=== PATIENT | female | born 1980 | race Caucasian/White ===

== ENCOUNTER → 2024-07-28 13:26 | Outpatient (REF) | payer OTHER, SELFPAY | LOC: WDC 13:26 | PROVIDERS: ATTENDING PHYSICIAN Student in an Organized Health Care Education/Training Program | DX: Z12.31 Encounter for screening mammogram for malignant neoplasm of breast (principal) | CPT/HCPCS: 77063; 77067 ==

== ENCOUNTER 2025-04-09 11:54 | Emergency (ER) | payer OTHER, SELFPAY ==
[2025-04-09 11:58] VITALS: BP 104/74
--- NOTE | 2025-04-09 12:27 | ED.CVA ---
Addendum entered and electronically signed by Ronaldo Damon PA-C 04/12/25 08:20:
Addendum:
04/12/2025 0820:
Lyme disease testing presumptively positive. Patient contacted and made aware. She was previously made aware of the high suspicion of this and presumptively started on doxycycline. She has been taking this. She has followed with her primary care
doctor. She is feeling better. Recommend continued treatment. All questions answered
Original Note:
History of Present Illness
General
Chief Complaint: CVA/TIA Symptoms
Source: patient
Time Seen by Provider: 04/09/25 12:07
Onset of Stroke Symptoms
Onset of symptoms known: Yes
Date of onset of symptoms: 04/09/25
Time pt last seen normal is known: No
History of Present Illness
History of Present Illness:
45-year-old female woke in the morning with left facial droop. Also some mild neck left neck pain. Noted some redness to her right ankle for 2 weeks. Also has some general joint aches and pains. Some slight blurriness to the left eye. No other
neurologic symptoms.
Past History
Past History
ED Past Medical History: Psychiatric
Review of Systems
Review of Systems
All Other Systems: Not applicable
Constitutional: Denies fever or chills
Respiratory: Reports no symptoms
Cardiac: Reports no symptoms
Phy Exam
Physical Exam
Physical Exam:
GENERAL: Alert and oriented in no apparent distress
EYE: Orbits normal. Cornea clear
NECK: Supple, no carotid bruit.
ENT: Pharynx without erythema
CARDIAC: Regular rate and rhythm without any obvious murmurs.
LUNGS: Clear breath sounds,normal
ABDOMEN: Soft, without focal tenderness or distention
NEUROLOGICAL: Alert and oriented , decreased blinking left eye. Significant left facial paralysis. Forehead involvement but not complete. Decreased blinking. Gecpsv-xc-[id number] normal. Gait normal. Upper and lower extremity strength normal.
SKIN: Warm and dry, faint erythema at the right ankle approximately 20 cm oval in shape. No drainage no tenderness no warmth or erythema
MUSCULOSKELETAL: No edema,no deformity.Good color
PSYCH: Normal and appropriate interaction.
Course
Orders/Labs/Results
Orders:
Orders
04/09/25 12:24
CT Head W/o Iv Contrast Urgent
Comment:
Reason For Exam: Left 7th cranial nerve palsy/neck pain
CT Neck Angio W/wo Iv Contrast Urgent
Comment:
Reason For Exam: Left 7th cranial nerve palsy/neck pain
IV Insert/Care/Rem.- Treatment PRN
0.9% Sodium Chloride 500 ml [Nss] 500 ml IV BOLUS
Test Result ONCE
04/09/25 12:29
Electrocardiogram (*1) Stat
Reason for Study: Other
Other Reason for Exam: neuro symptoms
EKG- Treatment ONCE
04/09/25 12:44
Basic Metabolic Panel Urgent
Complete Blood Count/With Diff Urgent
HCG, Serum Qualitative Screen Urgent
Lyme Progressive Urgent
04/09/25 14:35
Dexamethasone Sod Phosphate [Decadron] 8 mg IV NOW STA
Doxycycline [Vibramycin] 100 mg PO NOW STA
Abnormal Lab Results
04/09/25
12:44
RBC 3.33 L 10^6/uL
(4.20-5.40)
Hgb 10.6 L g/dL
(12.0-16.0)
Hct 30.3 L %
(37.0-47.0)
MCH 31.8 H pg
(27.0-31.0)
Absolute Neuts (auto) 8.7 H 10^3/uL
(1.4-6.5)
Absolute Lymphs (auto) 1.1 L 10^3/uL
(1.2-3.4)
Neutrophils % 83.5 H %
(42.2-75.2)
Lymphocytes % 11.0 L %
(20.5-51.1)
Chloride 108 H mmol/L
(98-107)
Glucose 117 H mg/dl
(70-99)
04/09/25 12:44
04/09/25 12:44
Vital Signs
Initial and Last Documented VS:
Initial Vital Signs
Temp Pulse Resp BP Pulse Ox
98.9 F 88 18 104/74 98
04/09/25 11:58 04/09/25 11:58 04/09/25 11:58 04/09/25 11:58 04/09/25 11:58
Last Documented Vital Signs
Temp Pulse Resp BP Pulse Ox
98.9 F 71 16 112/70 98
04/09/25 11:58 04/09/25 12:48 04/09/25 12:48 04/09/25 12:47 04/09/25 12:48
MDM/Problems Addressed
Differential Diagnosis Includes:
Very suspicious of his 7th cranial nerve palsy from Lyme disease. There is some forehead involvement. Clearly decreased blinking. The rash on the foot would be consistent with ECM. However with the neck pain we will get a CTA of the neck.
*Radiology
Radiology exam reviewed: radiology read reviewed (CTA negative. Head CT negative.)
*Pulse Oximetry
SaO2: 98
Oxygen Mode of Delivery: Room air
Patient hypoxic: no
*EKG
Interpreted by ED Provider?: Yes
Comparison EKG: no comparison EKG present
Heart Rate: 83
Rate: normal
Rhythm: sinus
[place]: normal axis
Interval: normal interval
QRS Pattern: normal QRS
Ischemia: no ischemia
*Critical Care Note
Total Time (30-74mins, 75-104mins- exclusive of procedures): Not Applicable
Update Note
Update Note:
Highly suspicious of 7th cranial nerve palsy secondary to Lyme disease. Course of doxycycline prednisone and follow-up. Eye patch and eye ointment/drops were also explained.
ED Attending Note
-
Portions of this chart may have been created with voice recognition software.� Occasional wrong word or��sound alike� substitutions may have occurred due to the inherent limitations of voice recognition software.
Discharge Plan
Departure
Patient Disposition: Home (Routine Discharge)
Date of Disposition: 04/09/25
Time of Disposition: 14:37
Patient with high blood pressure during this ER visit?: No
Discharge Problem:
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
Instructions: Schmid's Palsy (DC), Lyme Disease (DC)
Prescriptions:
New
prednisone 50 mg tablet
50 mg PO DAILY Qty: 6 0RF
doxycycline hyclate 100 mg capsule
100 mg PO BID 21 Days Qty: 42 0RF
Referrals:
Rikki Irby MD [Family Provider, Family Practice]
Activity Restrictions/Additional Instructions:
Prescriptions were sent to your pharmacy
Do exercises for the nerve palsy as we discussed
Protect the eye with the patch at night and drops during the day
Follow-up closely with your primary physician
Interventions
Interventions:
*Risk Screen - Suicide Last Done: 04/09/25 11:58
*General Assessment Last Done: 04/09/25 12:37
*Neglect/Abuse Screening Last Done: 04/09/25 12:37
*ED- Fall Risk Assessment Last Done: 04/09/25 12:37
*ED COVID-19 Vaccine History Last Done: 04/09/25 12:37
ED- Pulmonary Assessment Last Done: 04/09/25 12:48
ED- Neurological Assessment Last Done: 04/09/25 12:57
ED- Cardiac Assessment Last Done: 04/09/25 12:48
Discharge Date and Time
Print Language: [id number]
[2025-04-09 12:47] VITALS: BP 112/70
[2025-04-09 12:48] VITALS: BMI 24.0
[2025-04-09 12:54] LABS: Hematocrit 30.3 % (37.0-47.0); Hemoglobin 10.6 g/dL (12.0-16.0); Mean Corp Hgb Conc. 35.0 g/dL (33.0-37.0); Mean Corpuscular Volume 91.0 fL (81.0-99.0); Nucleated Red Blood Cells % 0 %; Platelet Count 345 10^3/uL (130-400); Red Cell Dist. Width 12.4 % (11.5-14.5)
[2025-04-09 13:00] VITALS: BP 109/69
[2025-04-09] MEDS: NSS 500 IV (13:02)
[2025-04-09 13:16] LABS: HCG, Serum Qualitative Screen Negative
[2025-04-09 13:19] LABS: Blood Urea Nitrogen 13 mg/dl (7-17); Calcium 9.1 mg/dl (8.4-10.2); Carbon Dioxide 24 mmol/L (22-30); Chloride 108 mmol/L (98-107); Estimated Creatinine Clearance 92 ml/min; Glucose 117 mg/dl (70-99); Potassium 3.8 mmol/L (3.5-5.1); Sodium 135 mmol/L (135-145); eGFR > 60.00
[2025-04-09 13:57] VITALS: BP 117/64
[2025-04-09 14:00] VITALS: BP 106/77
[2025-04-09] MEDS: DECADRON 8 MG IV (14:46)
[2025-04-09] MEDS: VIBRAMYCIN 100 MG PO (14:46)
[2025-04-09 15:00] VITALS: BP 110/76
[2025-04-11 11:42] LABS: Lyme Antibody Screen, EIA Presump. Positive (Negative)
== END 2025-04-09 15:10 | disposition home or self-care (01) ==
LOC: EMR 11:54
PROVIDERS: EMERGENCY PHYSICIAN Emergency Medicine; FAMILY PHYSICIAN Student in an Organized Health Care Education/Training Program
DX: G51.0 Bell's palsy (principal); M54.2 Cervicalgia; M79.10 Myalgia, unspecified site; H53.8 Other visual disturbances; L53.9 Erythematous condition, unspecified
CPT/HCPCS: 99285; 70450; 70498; 80048; 84703; 85025; 86617; 86618; 93005; Q9967